=== PATIENT | female | born 1970 | race Caucasian/White ===

== ENCOUNTER 2020-08-13 22:11 | Inpatient (IN) | payer BC, OTHER ==
[2020-08-13] MEDS ORDERED: ACETAMINOPHEN TAB 500 MG TAB PO STA (22:43)
[2020-08-13] MEDS ORDERED: SODIUM CHLORIDE 0.9% 1,000 ML IV STA (22:43)
[2020-08-13] MEDS ORDERED: METOCLOPRAMIDE 5 MG/ML 2 ML VIAL IVP STA (22:45)
[2020-08-13] MEDS ORDERED: KETOROLAC 15 MG/ML 1 ML VIAL IVP STA (22:45)
--- NOTE | 2020-08-13 22:51 | ED ---
General Adult HPI - General Chief complaint: Headache Stated complaint: Abd pain,headache Time Seen by Provider: 08/13/20 22:36 Source: patient, family, RN notes reviewed, old records reviewed Mode of arrival: wheelchair Limitations: no limitations - History of Present Illness Initial comments: 49-year-old female presenting for evaluation of headache and concern for UTI. Patient has history of migraine headaches. She has had a migraine headache for the past several days. She also has had fever and chills as well as lower abdominal discomfort which is bilateral and states that she believes she may have a urinary tract infection. She does not have dysuria. She's had an no vomiting. No cough or URI symptoms. No nasal congestion, no sore throat. - Related Data Allergies Allergy/AdvReac Type Severity Reaction Status Date / Time meperidine [From Demerol] Allergy Unknown Verified 08/13/20 22:17 Review of Systems ROS Statement: Those systems with pertinent positive or pertinent negative responses have been documented in the HPI. ROS Other: All systems not noted in ROS Statement are negative. Past Medical History Additional Past Medical History / Comment(s): migraines, OCD History of Any Multi-Drug Resistant Organisms: None Reported Past Surgical History: Appendectomy, Tonsillectomy Past Psychological History: No Psychological Hx Reported Smoking Status: Never smoker Past Alcohol Use History: Occasional Past Drug Use History: None Reported General Exam Limitations: no limitations General appearance: alert, in no apparent distress Head exam: Present: atraumatic, normocephalic Eye exam: Present: normal appearance, PERRL ENT exam: Present: normal exam Neck exam: Present: normal inspection. Absent: tenderness, meningismus Respiratory exam: Present: normal lung sounds bilaterally. Absent: respiratory distress, wheezes Cardiovascular Exam: Present: regular rate, normal rhythm GI/Abdominal exam: Present: soft, tenderness (Bilateral lower tenderness, minimal). Absent: distended, guarding, rebound Extremities exam: Present: normal inspection, normal capillary refill. Absent: pedal edema Neurological exam: Present: alert, oriented X3, CN II-XII intact. Absent: motor sensory deficit Psychiatric exam: Present: normal affect, normal mood Skin exam: Present: warm, dry, intact. Absent: cyanosis, diaphoretic Course Vital Signs 08/13/20 08/14/20 22:13 00:02 Temperature 101.8 F H 99.8 F H Pulse Rate 105 H Respiratory 18 Rate Blood Pressure 127/78 O2 Sat by Pulse 95 Oximetry Medical Decision Making - Medical Decision Making 49-year-old female presenting with headache, fever, lower abdominal pain and concern for UTI. Patient is febrile to 103 upon arrival. She is tachycardic. She has had nausea. She has a nonfocal neurologic exam. No nuchal rigidity. No URI symptoms. Workup is initiated, and Janette chest x-ray negative for focal pneumonia or acute findings. Negative for influenza, negative for coronavirus. She has a leukocytosis, electrolytes show mild hypokalemia. She has urinalysis consistent with urinary tract infection and pyelonephritis. She will be admitted for IV antibiotics, IV fluids, and symptom control. - Lab Data Result diagrams: 08/13/20 23:33 08/13/20 23:32 Lab Results 08/13/20 08/13/20 08/13/20 Range/Units 23:32 23:32 23:32 WBC (3.8-10.6) k/uL RBC (3.80-5.40) m/uL Hgb (11.4-16.0) gm/dL Hct (34.0-46.0) % MCV (80.0-100.0) fL MCH (25.0-35.0) pg MCHC (31.0-37.0) g/dL RDW (11.5-15.5) % Plt Count (150-450) k/uL MPV Neutrophils % % Lymphocytes % % Monocytes % % Eosinophils % % Basophils % % Neutrophils # (1.3-7.7) k/uL Lymphocytes # (1.0-4.8) k/uL Monocytes # (0-1.0) k/uL Eosinophils # (0-0.7) k/uL Basophils # (0-0.2) k/uL Sodium 132 L (137-145) mmol/L Potassium 3.2 L (3.5-5.1) mmol/L Chloride 100 (98-107) mmol/L Carbon Dioxide 26 (22-30) mmol/L Anion Gap 6 mmol/L BUN 8 (7-17) mg/dL Creatinine 0.68 (0.52-1.04) mg/dL Est GFR (CKD-EPI)AfAm >90 (>60 ml/min/1.73 sqM) Est GFR (CKD-EPI)NonAf >90 (>60 ml/min/1.73 sqM) Glucose 161 H (74-99) mg/dL Plasma Lactic Acid Kwame 0.7 (0.7-2.0) mmol/L Calcium 8.3 L (8.4-10.2) mg/dL Total Bilirubin 1.1 (0.2-1.3) mg/dL AST 65 H (14-36) U/L ALT 34 (4-34) U/L Alkaline Phosphatase 160 H (38-126) U/L Total Protein 6.1 L (6.3-8.2) g/dL Albumin 3.3 L (3.5-5.0) g/dL Urine Color Yellow Urine Appearance Cloudy H (Clear) Urine pH 6.0 (5.0-8.0) Ur Specific [place] 1.005 (1.001-1.035) Urine Protein Trace H (Negative) Urine Glucose (UA) Negative (Negative) Urine Ketones Negative (Negative) Urine Blood Small H (Negative) Urine Nitrite Negative (Negative) Urine Bilirubin Negative (Negative) Urine Urobilinogen <2.0 (<2.0) mg/dL Ur Leukocyte Esterase Large H (Negative) Urine RBC 2 (0-5) /hpf Urine WBC >182 H (0-5) /hpf Urine Bacteria Rare H (None) /hpf Coronavirus (PCR) (Not Detectd) Influenza Type A RNA (Not Detectd) Influenza Type B (PCR) (Not Detectd) 08/13/20 08/13/20 08/13/20 Range/Units 23:32 23:32 23:33 WBC 12.8 H (3.8-10.6) k/uL RBC 3.65 L (3.80-5.40) m/uL Hgb 13.0 (11.4-16.0) gm/dL Hct 36.9 (34.0-46.0) % MCV 101.1 H (80.0-100.0) fL MCH 35.6 H (25.0-35.0) pg MCHC 35.3 (31.0-37.0) g/dL RDW 11.6 (11.5-15.5) % Plt Count 182 (150-450) k/uL MPV 6.9 Neutrophils % 90 % Lymphocytes % 4 % Monocytes % 4 % Eosinophils % 1 % Basophils % 0 % Neutrophils # 11.5 H (1.3-7.7) k/uL Lymphocytes # 0.6 L (1.0-4.8) k/uL Monocytes # 0.5 (0-1.0) k/uL Eosinophils # 0.1 (0-0.7) k/uL Basophils # 0.0 (0-0.2) k/uL Sodium (137-145) mmol/L Potassium (3.5-5.1) mmol/L Chloride (98-107) mmol/L Carbon Dioxide (22-30) mmol/L Anion Gap mmol/L BUN (7-17) mg/dL Creatinine (0.52-1.04) mg/dL Est GFR (CKD-EPI)AfAm (>60 ml/min/1.73 sqM) Est GFR (CKD-EPI)NonAf (>60 ml/min/1.73 sqM) Glucose (74-99) mg/dL Plasma Lactic Acid [place] (0.7-2.0) mmol/L Calcium (8.4-10.2) mg/dL Total Bilirubin (0.2-1.3) mg/dL AST (14-36) U/L ALT (4-34) U/L Alkaline Phosphatase (38-126) U/L Total Protein (6.3-8.2) g/dL Albumin (3.5-5.0) g/dL Urine Color Urine Appearance (Clear) Urine pH (5.0-8.0) Ur Specific [place] (1.001-1.035) Urine Protein (Negative) Urine Glucose (UA) (Negative) Urine Ketones (Negative) Urine Blood (Negative) Urine Nitrite (Negative) Urine Bilirubin (Negative) Urine Urobilinogen (<2.0) mg/dL Ur Leukocyte Esterase (Negative) Urine RBC (0-5) /hpf Urine WBC (0-5) /hpf Urine Bacteria (None) /hpf Coronavirus (PCR) Not Detected (Not Detectd) Influenza Type A RNA Not Detected (Not Detectd) Influenza Type B (PCR) Not Detected (Not Detectd) Disposition Clinical Impression: Pyelonephritis Disposition: ADMITTED IP TO THIS HOSP Condition: Stable Is patient prescribed a controlled substance at d/c from ED?: No Referrals: None,Stated [Primary Care Provider] - 1-2 days Decision to Admit Reason: Admit from EC Decision Date: 08/14/20 Decision Time: 01:35
[2020-08-13 23:54] LABS: Basophils % (A) 0 %; Eosinophils # (A) 0.1 k/uL (0-0.7); Eosinophils % (A) 1 %; HCT 36.9 % (34.0-46.0); Lymphocytes # (A) 0.6 k/uL (1.0-4.8); Lymphocytes % (A) 4 %; MCH 35.6 pg (25.0-35.0); MCHC 35.3 g/dL (31.0-37.0); MCV 101.1 fL (80.0-100.0); Mean Platelet Volume 6.9; Monocytes # (A) 0.5 k/uL (0-1.0); Monocytes % (A) 4 %; Neutrophils # (A) 11.5 k/uL (1.3-7.7); Neutrophils % (A) 90 %; Platelet Count 182 k/uL (150-450); RBC 3.65 m/uL (3.80-5.40); RDW 11.6 % (11.5-15.5); WBC 12.8 k/uL (3.8-10.6)
[2020-08-14 00:09] LABS: ALT 34 U/L (4-34); AST 65 U/L (14-36); African American GFR (CKD) >90 (>60 ml/min/1.73 sqM); Albumin 3.3 g/dL (3.5-5.0); Alkaline Phosphatase 160 U/L (38-126); Anion Gap 6 mmol/L; Blood Urea Nitrogen 8 mg/dL (7-17); Calcium 8.3 mg/dL (8.4-10.2); Carbon Dioxide 26 mmol/L (22-30); Chloride 100 mmol/L (98-107); Glucose 161 mg/dL (74-99); Non-African American GFR(CKD) >90 (>60 ml/min/1.73 sqM); Potassium 3.2 mmol/L (3.5-5.1); Sodium 132 mmol/L (137-145); Total Bilirubin 1.1 mg/dL (0.2-1.3); Total Protein 6.1 g/dL (6.3-8.2)
--- NOTE | 2020-08-14 00:09 | XR ---
EXAMINATION TYPE: XR chest 2V DATE OF EXAM: 08/13/2020 COMPARISON: NONE HISTORY: Chest pain TECHNIQUE: FINDINGS: Heart and mediastinum are within normal limits. Lungs are clear of infiltrate. Costophrenic angles are clear. There are no hilar masses. There is a relative poor inspiration. Bony thorax appea rs intact. IMPRESSION: Poor inspiration. No pulmonary consolidation or heart failure.
[2020-08-14] MEDS ORDERED: POTASSIUM CHLORIDE ER 20 MEQ TAB.ER PO STA (00:36)
[2020-08-14 00:41] LABS: Appearance,Urine Cloudy (Clear); Bacteria,Urine Rare /hpf; Bilirubin,Urine Negative (Negative); Blood,Urine Small (Negative); Color,Urine Yellow; Glucose,Urine (UA) Negative (Negative); Ketones,Urine Negative (Negative); Leukocyte Esterase,Urine Large (Negative); Nitrite,Urine Negative (Negative); Protein,Urine Trace (Negative); RBC,Urine 2 /hpf (0-5); Specific Gravity,Urine 1.005 (1.001-1.035); Urobilinogen,Urine <2.0 mg/dL (<2.0); WBC,Urine >182 /hpf (0-5)
[2020-08-14] MEDS ORDERED: SODIUM CHLORIDE 0.9% 500 ML 500 ML IV ONE (01:31)
[2020-08-14] MEDS ORDERED: IBUPROFEN 400 MG TAB PO PRN (01:32)
[2020-08-14] MEDS ORDERED: ONDANSETRON 4 MG/2 ML VIAL IVP PRN (01:32)
[2020-08-14] MEDS ORDERED: NALOXONE 0.4 MG/ML 1 ML VIAL IV PRN (01:32)
[2020-08-14] MEDS: SODIUM CHLORIDE 0.9% 1,000 ML IV SCH ×3 (03:00→17:15)
[2020-08-14] MEDS ORDERED: MORPHINE SULFATE 4 MG/ML SYRINGE IVP PRN (04:00)
--- NOTE | 2020-08-14 04:22 | P.HPIM ---
History of Present Illness H&P Date: 08/14/20 Chief Complaint: headaches, and concerns for UTI 49 year old healthy female with history of migraine Patient comes in with 3 day history of not feeling well complaining of headache abdominal discomfort and feeling queasy stomach today she was having high fevers 103, she denies any upper respiratory infection symptoms denies any diarrhea denies any nausea vomiting or GI bleeding Patient denies any dysuria or hematuria however she notes that her urine is darker than usual it looks like mixed with orange juice she is athletic and make sure she drinks a lot of water every day she is complaining of lower abdominal pain and pain in bilateral flanks worse with movement she rates the pain as 8 out of 10 in severity sharp in nature over the past 3 days she tried to power through it rested, with no improvement. In the ED she was found to have leukocytosis and positive urine suggestive of pyelonephritis Review of Systems Pertinent positives as noted in HPI. All other systems were reviewed and are negative Past Medical History Additional Past Medical History / Comment(s): Migraines, OCD History of Any Multi-Drug Resistant Organisms: None Reported Past Surgical History: Appendectomy, Tonsillectomy Past Anesthesia/Blood Transfusion Reactions: No Reported Reaction Past Psychological History: No Psychological Hx Reported Smoking Status: Never smoker Past Alcohol Use History: Occasional Past Drug Use History: None Reported - Past Family History Family Family Medical History: No Reported History Medications and Allergies Home Medications Medication Instructions Recorded Confirmed Type Citalopram Hydrobromide [CeleXA] 40 mg PO DAILY 08/14/20 08/14/20 History Magnesium 500 mg PO DAILY 08/14/20 08/14/20 History Multivitamin [Multivitamins Adult 1 each PO DAILY 08/14/20 08/14/20 History Gummies] Ubrogepant [Ubrelvy] 100 mg PO DAILY 08/14/20 08/14/20 History rOPINIRole HCL 1.5 mg PO HS 08/14/20 08/14/20 History Allergies Allergy/AdvReac Type Severity Reaction Status Date / Time meperidine [From Demerol] Allergy Unknown Verified 08/14/20 02:54 Physical Exam Vitals: Vital Signs Temp Pulse Resp BP Pulse Ox 08/14/20 02:01 97.9 F 08/14/20 00:02 99.8 F H 08/13/20 22:13 101.8 F H 105 H 18 127/78 95 Intake and Output 08/13/20 08/13/20 08/14/20 14:59 22:59 06:59 Other: Weight 58.967 kg 66.8 kg Constitutional: No acute distress, conversant, pleasant Eyes: Anicteric sclerae, moist conjunctiva, Pupils equal round reactive to light ENMT: NC/AT Oropharynx clear, no erythema, exudates Neck: Supple, FROM, no masses, or JVD No carotid bruits No thyromegaly Lungs: Clear to auscultation Clear to percussion Normal respiratory effort, no accessory muscle use Cardiovascular: Heart regular in rate and rhythm, No murmurs, gallops, or rubs No peripheral edema Abdominal: Soft Diffuse tenderness to abdominal exam mainly over the suprapubic region and bilateral flanks CVA tenderness bilaterally worse on the left, voluntary guarding, no rebound or rigidity Abdomen moving with respiration Normoactive bowel sounds No hepatomegaly, No splenomegaly No palpable mass No abdominal wall hernia noted Skin: Normal temperature, tone, texture, turgor No induration No subcutaneous nodules No rash, lesions No ulcers Extremities: No digital cyanosis No clubbing Pedal pulses intact and symmetrical Radial pulses intact and symmetrical No calf tenderness Psychiatric: Alert and oriented to person, place and time Appropriate affect fair judgement Neuro Muscles Strength 5/5 in all 4 extremities Sensation to light touch grossly present throughout Cranial nerves II-XII grossly intact No focal sensory deficits Lymphatics: no palpable cervical or supraclavicular , or inguinal lymph nodes Results CBC & Chem 7: 08/13/20 23:33 08/13/20 23:32 Labs: Abnormal Lab Results - Last 24 Hours (Table) 08/13/20 08/13/20 08/13/20 Range/Units 23:32 23:32 23:33 WBC 12.8 H (3.8-10.6) k/uL RBC 3.65 L (3.80-5.40) m/uL MCV 101.1 H (80.0-100.0) fL MCH 35.6 H (25.0-35.0) pg Neutrophils # 11.5 H (1.3-7.7) k/uL Lymphocytes # 0.6 L (1.0-4.8) k/uL Sodium 132 L (137-145) mmol/L Potassium 3.2 L (3.5-5.1) mmol/L Glucose 161 H (74-99) mg/dL Calcium 8.3 L (8.4-10.2) mg/dL AST 65 H (14-36) U/L Alkaline Phosphatase 160 H (38-126) U/L Total Protein 6.1 L (6.3-8.2) g/dL Albumin 3.3 L (3.5-5.0) g/dL Urine Appearance Cloudy H (Clear) Urine Protein Trace H (Negative) Urine Blood Small H (Negative) Ur Leukocyte Esterase Large H (Negative) Urine WBC >182 H (0-5) /hpf Urine Bacteria Rare H (None) /hpf Thrombosis Risk Factor Assmnt - Choose All That Apply Any of the Below Risk Factors Present?: Yes Each Factor Represents 1 point: Age 41-60 years Other Risk Factors: No Other congenital or acquired thrombophilia - If yes, enter type in comment: No Thrombosis Risk Factor Assessment Total Risk Factor Score: 1 Thrombosis Risk Factor Assessment Level: Low Risk Assessment and Plan Assessment: Sepsis secondary to acute pyelonephritis IV fluid hydration Pain control Tylenol for fever Rocephin Follow-up cultures ppi CODE STATUS: Full code DVT prophylaxis: Mechanical Discussed with: Patient, ER, RN Anticipated length of stay < than [address]: Home A total of 75 minutes was spent on the care of this complex patient more than 50% of the time was spent in counseling and care coordination.
[2020-08-14] MEDS: KETOROLAC 15 MG/ML 1 ML VIAL IVP SCH ×4 (05:42→23:16)
[2020-08-14] MEDS: PANTOPRAZOLE 40 MG TABLET PO SCH ×2 (06:33→17:09)
[2020-08-14 07:54] LABS: Basophils % (A) 0 %; Eosinophils # (A) 0.1 k/uL (0-0.7); Eosinophils % (A) 1 %; HCT 33.2 % (34.0-46.0); HGB 11.5 gm/dL (11.4-16.0); Lymphocytes % (A) 10 %; MCH 35.9 pg (25.0-35.0); MCHC 34.6 g/dL (31.0-37.0); MCV 103.6 fL (80.0-100.0); Macrocytosis Slight; Mean Platelet Volume 6.9; Monocytes # (A) 0.2 k/uL (0-1.0); Monocytes % (A) 2 %; Neutrophils # (A) 8.5 k/uL (1.3-7.7); Neutrophils % (A) 86 %; Platelet Count 159 k/uL (150-450); RBC 3.21 m/uL (3.80-5.40); RDW 11.6 % (11.5-15.5); WBC 9.9 k/uL (3.8-10.6)
[2020-08-14 08:05] LABS: African American GFR (CKD) >90 (>60 ml/min/1.73 sqM); Anion Gap 4 mmol/L; Blood Urea Nitrogen 8 mg/dL (7-17); Calcium 7.5 mg/dL (8.4-10.2); Carbon Dioxide 27 mmol/L (22-30); Chloride 105 mmol/L (98-107); Creatine Kinase 36 U/L (30-135); Glucose 118 mg/dL (74-99); Non-African American GFR(CKD) >90 (>60 ml/min/1.73 sqM); Potassium 3.6 mmol/L (3.5-5.1); Sodium 136 mmol/L (137-145)
[2020-08-14] MEDS: ACETAMINOPHEN TAB 325 MG TAB PO PRN ×3 (09:22→21:29)
[2020-08-14] MEDS: CITALOPRAM HYDROBROMIDE 20 MG TAB PO SCH (09:24)
[2020-08-14] MEDS: MAGNESIUM OXIDE 400 MG TAB PO SCH (09:24)
--- NOTE | 2020-08-14 20:13 | P.PN ---
Progress Note - Text Progress Note Date: 08/14/20 (delayed charting see at 0830) Patient seen by my partner this morning. She states that her flank pain is improved though not resolved. No nausea or vomiting. Blood cultures noted to come back with gram-negative bacilli will continue on Rocephin. General: non toxic, no distress, appears at stated age Derm: warm, dry Cardiovascular: S1S2 reg, no murmur, positive posterior tibial pulse bilateral, Lungs: CTA bilateral, no rhonchi, no rales , no accessory muscle use Abdominal: soft, nontender to palpation, no guarding, no appreciable organomegaly Ext: no gross muscle atrophy, no edema, no contractures Neuro: CN II-XI grossly intact, no focal neuro deficits Psych: Alert, oriented, appropriate affect
[2020-08-14] MEDS: HYDROcodone/APAP 5-325MG 1 EACH TAB PO PRN (23:23)
[2020-08-15] MEDS: KETOROLAC 15 MG/ML 1 ML VIAL IVP SCH ×4 (06:04→23:03)
[2020-08-15] MEDS: SODIUM CHLORIDE 0.9% 1,000 ML IV SCH (06:05)
[2020-08-15] MEDS: PANTOPRAZOLE 40 MG TABLET PO SCH ×2 (06:30→17:44)
[2020-08-15 08:47] LABS: HCT 34.5 % (34.0-46.0); MCH 36.2 pg (25.0-35.0); MCHC 34.8 g/dL (31.0-37.0); MCV 104.2 fL (80.0-100.0); Macrocytosis Slight; Mean Platelet Volume 6.7; Platelet Count 165 k/uL (150-450); RBC 3.32 m/uL (3.80-5.40); RDW 11.8 % (11.5-15.5); WBC 8.2 k/uL (3.8-10.6)
[2020-08-15 08:57] LABS: African American GFR (CKD) >90 (>60 ml/min/1.73 sqM); Anion Gap 5 mmol/L; Blood Urea Nitrogen 10 mg/dL (7-17); Calcium 7.6 mg/dL (8.4-10.2); Carbon Dioxide 23 mmol/L (22-30); Chloride 108 mmol/L (98-107); Glucose 109 mg/dL (74-99); Non-African American GFR(CKD) >90 (>60 ml/min/1.73 sqM); Potassium 3.8 mmol/L (3.5-5.1); Sodium 136 mmol/L (137-145)
[2020-08-15] MEDS: ACETAMINOPHEN TAB 325 MG TAB PO PRN ×3 (09:13→21:25)
[2020-08-15] MEDS: HYDROcodone/APAP 5-325MG 1 EACH TAB PO PRN ×3 (09:14→21:26)
[2020-08-15] MEDS: CITALOPRAM HYDROBROMIDE 20 MG TAB PO SCH (09:14)
[2020-08-15] MEDS: MAGNESIUM OXIDE 400 MG TAB PO SCH (09:23)
--- NOTE | 2020-08-15 16:02 | XR ---
EXAMINATION TYPE: XR chest 1V portable DATE OF EXAM: 08/15/2020 COMPARISON: 08/13/2020 HISTORY: Short of breath TECHNIQUE: FINDINGS: Heart and mediastinum are normal. Lungs are clear of consolidation. There is mild subsegmen dilshad atelectasis at the left lung base. There is slight blunting of the costophrenic angles. There is no heart failure. IMPRESSION: There is some mild pleural reaction at the lung bases and subsegmental atelectasis left l merry base that is increased compared to recent exam.
--- NOTE | 2020-08-15 16:59 | P.PN ---
Subjective Progress Note Date: 08/15/20 Principal diagnosis: flank pain Patient is a 41-year-old female with a history of migraine and OCD who presented to the emergency department with complaints of headache, abdominal discomfort and flank pain. In the emergency department she underwent an extensive evaluation. Initial vital signs showed a temperature of 101.8 and a pulse of 105. Initial labs showed white blood cell count of 12.8, sodium 132, potassium 3.2, lactate acid 0.7. Urinalysis was consistent with urinary tract infection. He Covid and influenza testing were negative. Chest x-ray demonstrated no acute process. She was diagnosed with pyelonephritis with sepsis she was started on IV fluids, Rocephin, and she was admitted. Her blood cultures came back for gram-negative bacilli. Her fever and white blood cell count improved. Patient seen and examined at bedside. She is feeling much improved today from yesterday. She states that her belly is feeling less queasy but she still having some pain in her abdomen and in her flanks. She denies any shortness of breath. No diarrhea. General: non toxic, no distress, appears at stated age Derm: warm, dry Head: atraumatic, normocephalic, symmetric Eyes: EOMI, no lid lag, anicteric sclera Mouth: no lip lesion, mucus membranes moist Cardiovascular: Decreased breath sounds bilateral, no murmur, positive posterior tibial pulse bilateral, Lungs: CTA bilateral, no rhonchi, no rales , no accessory muscle use Abdominal: soft, nontender to palpation, no guarding, no appreciable organomegaly Ext: no gross muscle atrophy, no edema, no contractures Neuro: CN II-XI grossly intact, no focal neuro deficits Psych: Alert, oriented, appropriate affect Gram negative bacilli pyelonephritis with resulting gram-negative bacilli bacteremia with sepsis -Continue with Rocephin -IV fluids -Await final culture results and anticipated two-week course of oral antibiotics. Hyponatremia due to dehydration -Improving -Patient developed some crackles in the afternoon of 08/15. Chest x-ray was checked and repeat ordered relatively unremarkable other than atelectasis. IV fluids were stopped. -Repeat basic metabolic profile in a.m. DVT prophylaxis: SCDs Discussed with: patient, nursing Anticipated discharge: in AM if culture results available Anticipated discharge place: home A total of 35 minutes was spent on the care of this complex patient more than 50% of the time was spent in counseling and care coordination. Objective - Vital Signs Vital signs: Vital Signs Temp 98.3 F 08/15/20 15:31 Pulse 70 08/15/20 15:31 Resp 16 08/15/20 15:31 BP 126/81 08/15/20 15:31 Pulse Ox 98 08/15/20 15:31 Intake & Output 08/14/20 08/15/20 08/15/20 18:59 06:59 18:59 Intake Total 1440 1080 960 Output Total 1000 900 Balance 440 180 960 Intake: Oral 1440 1080 960 Output: Urine 1000 900 Other: Voiding Method Toilet Toilet Toilet # Voids 1 - Labs CBC & Chem 7: 08/15/20 08:26 08/15/20 08:26 Labs: Abnormal Lab Results - Last 24 Hours (Table) 08/15/20 08/15/20 Range/Units 08:26 08:26 RBC 3.32 L (3.80-5.40) m/uL MCV 104.2 H (80.0-100.0) fL MCH 36.2 H (25.0-35.0) pg Sodium 136 L (137-145) mmol/L Chloride 108 H (98-107) mmol/L Glucose 109 H (74-99) mg/dL Calcium 7.6 L (8.4-10.2) mg/dL Microbiology - Last 24 Hours (Table) 08/13/20 23:32 Urine Culture - Preliminary Urine,Voided Gram Neg Bacilli 08/13/20 23:32 Blood Culture Gram Stain - Preliminary Blood Blood Culture - Preliminary Gram Neg Bacilli 08/13/20 23:32 Blood Culture - Final Blood
[2020-08-15 22:48] VITALS: RESP 18
[2020-08-16] MEDS: KETOROLAC 15 MG/ML 1 ML VIAL IVP SCH ×2 (05:53→12:28)
[2020-08-16 07:30] LABS: African American GFR (CKD) >90 (>60 ml/min/1.73 sqM); Anion Gap 3 mmol/L; Blood Urea Nitrogen 8 mg/dL (7-17); Carbon Dioxide 29 mmol/L (22-30); Chloride 104 mmol/L (98-107); Glucose 108 mg/dL (74-99); Non-African American GFR(CKD) >90 (>60 ml/min/1.73 sqM); Sodium 136 mmol/L (137-145)
[2020-08-16] MEDS: MAGNESIUM OXIDE 400 MG TAB PO SCH (09:23)
[2020-08-16] MEDS: PANTOPRAZOLE 40 MG TABLET PO SCH (09:24)
[2020-08-16] MEDS: CITALOPRAM HYDROBROMIDE 20 MG TAB PO SCH (09:24)
[2020-08-16] MEDS: HYDROcodone/APAP 5-325MG 1 EACH TAB PO PRN (09:28)
[2020-08-16 09:44] VITALS: BP 152/78; PULSE 87; TEMP 97.5
--- NOTE | 2020-08-16 15:30 | P.DS ---
Providers Date of admission: 08/16/20 07:50 Expected date of discharge: 08/16/20 Attending physician: Florencio Zarate MD Primary care physician: Stated None Hospital Course: Patient is a 41-year-old female with a history of migraine and OCD who presented to the emergency department with complaints of headache, abdominal discomfort and flank pain. In the emergency department she underwent an extensive evaluation. Initial vital signs showed a temperature of 101.8 and a pulse of 105. Initial labs showed white blood cell count of 12.8, sodium 132, potassium 3.2, lactate acid 0.7. Urinalysis was consistent with urinary tract infection. He Covid and influenza testing were negative. Chest x-ray demonstrated no acute process. She was diagnosed with pyelonephritis with sepsis and was started on IV fluids, Rocephin, and was admitted. The patient's blood and urine cultures both resulted in pansensitive E. coli. The patient's leukocytosis and fever improved. She was seen and evaluated at the bedside on the day of discharge. She reported significant improvement in her abdominal and flank pain, currently at a 1-2 out of 10. She denied any additional episodes of fever, nausea, vomiting. Denied any additional complaints. Denied chest pain, shortness of breath, or cough. The patient was advised that if her condition worsens or symptoms recur, that she should immediately return to the emergency room. She was also advised to complete her course of oral antibiotics. The patient is stable and agreeable for discharge to home. Physical Examination General: Non-toxic, in no acute distress, appears stated age, normal weight HEENT: NC/AT, anicteric sclerae, moist conjunctiva, no lid-lag, PERRLA Cardiovascular: S1/S2 wnl, no murmurs, rubs, or gallops Lungs: Clear to auscultation, normal respiratory effort, no accessory muscle use Abdominal: Soft, non-tender, non-distended, no guarding, rebound, or rigidity, minimal left CVA tenderness Skin: Warm, dry Extremities: No edema or contractures Psychiatric: Alert and oriented to person, place and time, appropriate affect Neuro: CN II-XII grossly intact, Strength 5/5 in all 4 extremities, Speech intact, Sensation to light touch grossly intact throughout Discharge diagnosis: E. coli pyelonephritis with sepsis; hyponatremia; dehydration A total of 40 minutes of time were spent preparing this complex discharge summary. Patient Condition at Discharge: Stable Plan - Discharge Summary Discharge Rx Participant: Yes New Discharge Prescriptions: New Sulfamethox-Tmp 800-160Mg [Bactrim DS 800-160 mg] 1 tab PO Q12HR #16 tab Continue Citalopram Hydrobromide [CeleXA] 40 mg PO DAILY Multivitamin [Multivitamins Adult Gummies] 1 tab PO DAILY Magnesium 500 mg PO DAILY rOPINIRole HCL 1.5 mg PO HS Butalb/Acetaminophen/Caffeine [Fioricet 50-300-40 mg Capsule] 1 - 2 cap PO QID PRN PRN Reason: Migraine Headache Discharge Medication List Butalb/Acetaminophen/Caffeine [Fioricet 50-300-40 mg Capsule] 1 - 2 cap PO QID PRN 08/14/20 [History] Citalopram Hydrobromide [CeleXA] 40 mg PO DAILY 08/14/20 [History] Magnesium 500 mg PO DAILY 08/14/20 [History] Multivitamin [Multivitamins Adult Gummies] 1 tab PO DAILY 08/14/20 [History] rOPINIRole HCL 1.5 mg PO HS 08/14/20 [History] Sulfamethox-Tmp 800-160Mg [Bactrim DS 800-160 mg] 1 tab PO Q12HR #16 tab 08/16/20 [Rx] Follow up Appointment(s)/Referral(s): None,Stated [Primary Care Provider] - 1-2 days Patient Instructions/Handouts: Urinary Tract Infection in Women (DC) Activity/Diet/Wound Care/Special Instructions: FOLLOW UP WITH PRIMARY CARE IN 1 TO 2 DAYS, SOONER IF PROBLEMS OR WORSENING SYMPTOMS THAT BROUGHT YOU IN. Discharge Disposition: HOME SELF-CARE
== END 2020-08-16 13:24 | disposition home or self-care (01) | DRG 872 ==
LOC: EC 22:11 → 6PED 08-14 01:32 → OBSVTOIN 08-16 07:50
PROVIDERS: ADMIT Internal Medicine; ATTEND Internal Medicine
DX: A41.51 Sepsis due to Escherichia coli [E. coli] (principal); E87.1 Hypo-osmolality and hyponatremia; N10 Acute pyelonephritis; F42.9 Obsessive-compulsive disorder, unspecified; E87.6 Hypokalemia; E86.0 Dehydration; G43.909 Migraine, unspecified, not intractable, without status migrainosus; Z79.899 Other long term (current) drug therapy; Z90.49 Acquired absence of other specified parts of digestive tract; Z98.890 Other specified postprocedural states; Z88.5 Allergy status to narcotic agent; Z20.828 Contact with and (suspected) exposure to other viral communicable diseases
CPT/HCPCS: 36415; 71045; 71046; 80048; 80053; 81001; 82550; 83605; 85025; 85027; 87040; 87077; 87086; 87186; 87502; 87635; 96361; 96365; 96374; 96375; 99285

== ENCOUNTER → 2020-09-14 | Outpatient (CLI) | payer OTHER ==
[2020-09-14 09:44] VITALS: BP 124/72; PULSE 89; RESP 16; TEMP 97.7
--- NOTE | 2020-09-14 10:43 | P.HPOB ---
History of Present Illness H&P Date: 09/14/20 Chief Complaint: The patient is here for her routine gynecologic exam. This is a 49-year-old with an LMP of 09/08/2020. It has been about 5 years since her last pelvic exam and mammogram. Her current boyfriend is status post vasectomy. They have been together for about 5 years. She is not sure if she will be with him much longer. She is contemplating getting an IUD. Menstrual periods have been about every 30-40 days. This has been fairly typical for her for many years. She denies any significant hot flashes. She is without gynecologic complaints. Review of Systems The patient's weight has been stable over the last year. She denies respiratory, cardiac, or G.I. problems. Past Medical History Additional Past Medical History / Comment(s): Migraines, OCD. Eating disorder between ages 16 and 34. 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 History of Any Multi-Drug Resistant Organisms: None Reported Past Surgical History: Appendectomy, Breast Surgery, Tonsillectomy Additional Past Surgical History / Comment(s): Breast augmentation with saline implants 2013. Past Anesthesia/Blood Transfusion Reactions: No Reported Reaction Additional Psychological History / Comment(s): OCD. Smoking Status: Never smoker Past Alcohol Use History: Occasional (2 per week) Past Drug Use History: None Reported Additional History: She is . She has been with her boyfriend since approximately 2014. She does not live with him. 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 She is an avid runner. - Past Family History Family Family Medical History: Coronary Artery Disease (CAD), Diabetes Mellitus Additional Family Medical History / Comment(s): Cardiac valve disorder. Mother Family Medical History: Diabetes Mellitus Brother(s) Family Medical History: Diabetes Mellitus Medications and Allergies Home Medications Medication Instructions Recorded Confirmed Type Butalb/Acetaminophen/Caffeine 1 - 2 cap PO QID PRN 08/14/20 09/14/20 History [Fioricet 50-300-40 mg Capsule] Citalopram Hydrobromide [CeleXA] 40 mg PO DAILY 08/14/20 09/14/20 History Magnesium 500 mg PO DAILY 08/14/20 09/14/20 History Multivitamin [Multivitamins Adult 1 tab PO DAILY 08/14/20 09/14/20 History Gummies] rOPINIRole HCL 2 mg PO HS 08/14/20 09/14/20 History Allergies Allergy/AdvReac Type Severity Reaction Status Date / Time meperidine [From Demerol] Allergy Unknown Verified 09/14/20 09:33 Exam Vital Signs Temp Pulse Resp BP Pulse Ox 09/14/20 09:35 97.7 F 89 16 124/72 98 Intake and Output 09/13/20 09/14/20 09/14/20 22:59 06:59 14:59 Other: Weight 65.317 kg Height 5 feet 6 inches, weight 144 pounds, BMI 23.2. This is a well-developed well-nourished white female who is alert and oriented times 3 in no acute distress. HEENT: Within normal limits. NECK: Supple without mass or thyromegaly. CHEST AND LUNGS: Clear to auscultation. HEART: Regular rate and rhythm. BREASTS: Are without mass or discharge. Breasts are consistent with bilateral breast implants. There is a circular scarred area measuring up to 1.5 cm at the 9 o'clock position of the right breast which she states was related to an insect bite several months ago. This is currently not inflamed. AXILLARY EXAM: Negative for adenopathy. BACK: Negative for CVA tenderness. ABDOMEN: Soft, nontender, without palpable masses. PELVIC EXAM: Normal external genitalia. Cervix and vagina appear normal. There is no unusual discharge. There is no evidence of prolapse. The uterus is midposition, nongravid size and nontender. There are no palpable adnexal masses or tenderness. RECTAL EXAM: Refused by the patient. EXTREMITIES: Nontender. IMPRESSION: 1. 49-year-old premenopausal female whose partner is status post vasectomy with normal gynecologic exam. 2. The patient is unsure whether she will continue to stay with her current boyfriend and she is contemplating getting an IUD for control. PLAN: 1. Pap smear cotest screening was performed. 2. Self breast awareness was discussed with the patient. 3. Screening mammogram is due and the order slip was given to the patient for this. She does have an appointment for this at a later date. 4. We have had a long discussion regarding control options. She will get more information on different types of IUDs online. We have discussed the various types of IUDs including the copper IUD and hormonal coated IUD. 5. GC and chlamydia screening were obtained from the cervix. This was done to prepare for possible IUD in the future. She was instructed to call if she would like to proceed with IUD placement and a referral will be made for this. 6.Osteoporosis prevention was discussed. I have stressed the importance of adequate calcium, vitamin D and regular exercise. Recommended amounts of calcium and vitamin D were also discussed. 7. STD prevention was discussed. I have stressed the importance of limiting sexual partners. We have also discussed how condom use can decrease the risk of STD infections. 8. She was advised to return in one year for her annual well woman exam.
--- NOTE | 2020-09-28 10:28 | P.PN ---
Progress Note - Text Progress Note Date: 09/28/20 OUTPATIENT FOLLOW-UP NOTE TEST(S)/RESULTS: Test results from 09/14/2020 include negative Pap smear, negative high-risk HPV testing, negative GC and negative chlamydia. METHOD OF NOTIFICATION: A message with these results was left on the patient's voicemail. PATIENT COMMENTS: DIAGNOSIS: Negative Pap smear cotest. Negative GC and chlamydia screening. DISCUSSION: PLAN: She was advised to return in one year for her annual well woman exam.
== END | disposition home or self-care (01) ==
LOC: WWCWWP 09:24
PROVIDERS: ATTEND Obstetrics & Gynecology
DX: Z53.9 Procedure and treatment not carried out, unspecified reason (principal)

== ENCOUNTER → 2021-01-12 | Outpatient (CLI) | payer OTHER ==
--- NOTE | 2021-01-17 11:03 | MM ---
Reason for exam: screening (asymptomatic). Last mammogram was performed 5 years and 6 months ago. History: Retro-pectoral implants, March 2014. Physical Findings: A clinical breast exam by your physician is recommended on an annual basis and results should be correlated with mammographic findings. MG 3D Screen Mammo Imp/Cad Bilateral CC, MLO, and ID view(s) were taken. Prior study comparison: July 28, 2015, bilateral MG 3d screen mammo imp/cad. There are scattered fibroglandular densities. No significant changes when compared with prior studies. ASSESSMENT: Benign, BI-RAD 2 RECOMMENDATION: Routine screening mammogram of both breasts in 1 year.
== END | disposition home or self-care (01) ==
LOC: RADMAMWWP 12-02 08:13
PROVIDERS: ATTEND Obstetrics & Gynecology
DX: Z12.31 Encounter for screening mammogram for malignant neoplasm of breast (principal); Z98.82 Breast implant status
CPT/HCPCS: 77063; 77067